=== PATIENT | male | born 1975 | race Caucasian/White ===

== ENCOUNTER 2019-12-21 18:28 | Emergency (ER) | payer BC ==
[~2019-12-21] VITALS: Ht 172.7 cm; Wt 80.7 kg
[2019-12-21] MEDS ORDERED: CEFTRIAXONE SOD 1 GM VIAL IV ONE (20:30)
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
[2019-12-21] MEDS ORDERED: CEFTRIAXONE SOD 1 GM VIAL ONE (21:29)
[2019-12-21] MEDS ORDERED: AUGMENTIN 500-1 EACH PO (22:07)
[2019-12-21] MEDS ORDERED: BACTRIM DS TAB1 EACH PO (22:07)
--- NOTE | 2019-12-22 00:16 | Diagnostic Imaging Report ---
EXAM: Right Lower Extremity Venous Duplex Ultrasound INDICATION: ^swelling ^[id number] ^[id number] COMPARISON: None TECHNIQUE: Noble scale, color Doppler and spectral waveform analysis of the right lower extremity deep venous system was performed. FINDINGS: Common Femoral: Fully compressible with normal spontaneous waveforms. Proximal Greater Saphenous: Fully compressible. Femoral: Fully compressible with normal spontaneous waveforms. Normal response to augmentation. Proximal Deep Femoral: Normal spontaneous waveforms. Popliteal: Fully compressible with normal spontaneous waveforms. IMPRESSION: No evidence of deep venous thrombosis above the right calf. Signed by: Dr. Javier Knowles MD on 12/22/2019 12:13 AM
== END 2019-12-21 22:33 | disposition home or self-care (01) ==
LOC: FSED 19:20
DX: L03.115 Cellulitis of right lower limb (principal); M79.661 Pain in right lower leg
CPT/HCPCS: 80053; 85025; 87040; 93971; 99284; J0696